=== PATIENT | male | born 1960 | race Caucasian/White ===

== ENCOUNTER 2017-04-13 08:28 | Emergency (ER) | payer BC ==
[2017-04-13 08:42] VITALS: BP 124/75
--- NOTE | 2017-04-13 09:59 | UC ---
Respiratory Complaint HPI - HPI Summary HPI Summary: per learning administrator : "COLD SYMPTOMS FOR THREE WEEKS. COUGHING PERSISTS . WORSE AT NIGHT. PRODUCTIVE AT TIMES. SOB WITH EXERSION OR IN COLD AIR. NO FEVER,CHILLS OR BODY ACHES NOW. " Here with his . non-smoker. no copd or asthma. never needed inhaler. no fevers or chills. just annoying cough. - History of Current Complaint Chief Complaint: UCRespiratory Stated Complaint: COUGH, CONGESTION Time Seen by Provider: 04/13/17 09:00 - Allergies/Home Medications Allergies/Adverse Reactions: Allergies Allergy/AdvReac Type Severity Reaction Status Date / Time Bee Venom Allergy Severe Anaphylatic Verified 04/13/17 08:35 Shock Home Medications: Home Medications Amlodipine Besylate-Atorvastat [Amlodipine Besylate/Atorv 10-20 mg] 1 tab PO DAILY 04/13/17 [History Confirmed 04/13/17] PMH/Surg Hx/FS Hx/Imm Hx Previously Healthy: Yes Cardiovascular History: Hypertension - Surgical History Surgical History: Yes Surgery Procedure, Year, and Place: HERNIA REPAIR - Family History Known Family History: Positive: Hypertension - Social History Alcohol Use: Occasionally Substance Use Type: None Smoking Status (MU): Never Smoked Tobacco - Immunization History Most Recent Influenza Vaccination: NO Review of Systems Constitutional: Negative Skin: Negative Eyes: Negative ENT: Negative Respiratory: Cough Cardiovascular: Negative Gastrointestinal: Negative Genitourinary: Negative Motor: Negative Neurovascular: Negative Musculoskeletal: Negative Neurological: Negative Psychological: Negative Is Patient Immunocompromised?: No All Other Systems Reviewed And Are Negative: Yes Physical Exam Triage Information Reviewed: Yes Appearance: Well-Appearing, No Pain Distress, Well-Nourished - very pleasant, cough is mild Vital Signs: Initial Vital Signs Temp 98 F 04/13/17 08:37 Pulse 79 04/13/17 08:37 Resp 16 04/13/17 08:37 BP 124/75 04/13/17 08:37 Pulse Ox 97 04/13/17 08:37 Vital Signs Reviewed: Yes Eye Exam: Normal ENT Exam: Normal ENT: Positive: Hearing grossly normal, Pharyngeal erythema - +PND, TMs normal. Negative: TM bulging, TM dull, TM red, Tonsillar swelling, Tonsillar exudate, Sinus tenderness Dental Exam: Normal Dental: Positive: Percussion Tenderness @, Gross Decay/Caries @, Dental Fracture @ Neck exam: Normal Neck: Positive: Supple, Nontender, No Lymphadenopathy Respiratory Exam: Normal Respiratory: Positive: Lungs clear, No respiratory distress, No accessory muscle use, Decreased breath sounds. Negative: Crackles, Rhonchi, Stridor, Wheezing Cardiovascular Exam: Normal Cardiovascular: Positive: RRR, No Murmur, Pulses Normal Abdominal Exam: Normal Abdomen Description: Positive: Nontender, Soft Musculoskeletal Exam: Normal Neurological Exam: Normal Psychological Exam: Normal Skin Exam: Normal UC Diagnostic Evaluation - Laboratory O2 Sat by Pulse Oximetry: 97 Respiratory Course/Dx - Differential Dx/Diagnosis Differential Diagnosis/HQI/PQRI: Bronchitis, Sinusitis, Other - pneumonia Provider Diagnoses: bronchitis Discharge - Discharge Plan Condition: Stable Disposition: HOME Prescriptions: Albuterol HFA INHALER* [Ventolin HFA Inhaler*] 2 puff INH Q4H PRN 14 Days #1 mdi PRN Reason: Cough Patient Education Materials: Acute Bronchitis (ED) Referrals: Ed Singleton DO [Primary Care Provider] - 5 Days Additional Instructions: There are no signs or symptoms of infection. Drink lots of fluids. using the albuterol will be helpful. Keep your Hilario appt w/ your PCP, follow up sooner if symptoms worsen.
== END 2017-04-13 10:07 | disposition home or self-care (01) ==
LOC: UCCORT 08:28
DX: J40 Bronchitis, not specified as acute or chronic (principal); I10 Essential (primary) hypertension
CPT/HCPCS: 99202; G0463